=== PATIENT | female | born 1990 | race Caucasian/White ===

== ENCOUNTER 2017-01-03 09:41 | Emergency (ER) | payer MEDICAID ==
[~2017-01-03] VITALS: Ht 160 cm; Wt 52.2 kg
--- NOTE | 2017-01-03 10:05 | NUR ---
Pt being evaluated by Dr. Martinez in overflow.
[2017-01-03 10:16] VITALS: BP 110/81
[2017-01-03 10:55] VITALS: BP 110/81
--- NOTE | 2017-01-03 10:55 | NUR ---
Patient discharged with v/s stable. Written and verbal after care instructions given and explained. Patient verbalized understanding. Ambulatory with steady gait. All questions addressed prior to discharge. Advised to follow up with PMD.
== END 2017-01-03 10:55 | disposition home or self-care (01) ==
LOC: MED 09:41 → EDSEX 09:41 → MED 10:55
DX: M25.572 Pain in left ankle and joints of left foot (principal)